=== PATIENT | female | born 1990 | race Caucasian/White ===

== ENCOUNTER 2019-02-18 11:53 | Inpatient (IN) ==
[2019-02-18] MEDS ORDERED: *HR* Nalbuphine 10 MG/ML AMPUL IVP PRN (12:37)
[2019-02-18] MEDS ORDERED: Famotidine 20 MG/2 ML VIAL IVP PRN (12:37)
[2019-02-18] MEDS ORDERED: Lidocaine 1% 20 ML MDV INFILT PRN (12:37)
[2019-02-18] MEDS ORDERED: Naloxone 0.4 MG/ML INJ IVP PRN (12:37)
[2019-02-18] MEDS ORDERED: Ondansetron 4 MG/2 ML VIAL IVP PRN (12:37)
[2019-02-18] MEDS ORDERED: Metoclopramide 10 MG/2 ML VIAL IVP PRN (12:37)
[2019-02-18] MEDS ORDERED: Oxytocin 20 units/ LR 1000 mL 20 UNIT/1,000 ML BAG IVC SCH ×2 (12:45→22:17)
[2019-02-18] MEDS ORDERED: Ringers Solution, Lactated 1,000 ML IVC SCH (12:45)
[2019-02-18 13:20] LABS: Hematocrit 37.4 % (35.3-44.9); Hemoglobin 12.6 g/dL (11.5-15.4); Mean Corpuscular HGB Conc 33.7 g/dL (31.6-35.5); Mean Corpuscular Hemoglobin 30.4 pg (28.0-33.3); Mean Corpuscular Volume 90.3 fL (83.0-100.0); Red Blood Count 4.14 M/mcL (3.82-4.97)
[2019-02-18 13:21] LABS: Basophils % 0.2 %; Eosinophils % 0.2 %; Immature Granulocytes % 0.3 % (0-4); Lymphocytes # 2.2 K/mcL (0.6-4.6); Mean Platelet Volume 11.3 fL (9.4-12.4); Monocytes # 0.6 K/mcL (0.0-1.3); Monocytes % 6.1 %; Neutrophils # 6.1 K/mcL (1.6-8.9); Platelet Count 202 K/mcL (140-400); Red Cell Distribution Width 13.2 % (11.5-14.5); Segmented Neutrophils % 68.2 %
--- NOTE | 2019-02-18 13:35 | OB/GYN History & Physical ---
Date of Encounter: 02/18/19 Time of Encounter: 13:35 Assessment and Plan (1) 39 weeks gestation of Current visit: Yes Status: Acute Pitocin induction as ordered. AROM with internals placed due to the difficulty in monitoring the baby with external monitors (2) Maternal obesity syndrome in third trimester Current visit: Yes Status: Acute History of Present Illness Chief complaint: induction of labor at term HPI: Ms. Mariano is a 28 year old female G 3 P 2-0-0-2 at 39 4/7 weeks admitted for induction of labor at term. She denies any regular contractions, vaginal bleeding, or leaking of fluid. She reports good movement. Her has been complicated by maternal obesity Past Med Surg Social Fam HX - Past Medical History Source: patient Medical history: no medical history Psychiatric history: no psych history - Past Surgical History Surgical History: no surgical history - Social History Smoking Status: Former smoker Smokeless Tobacco Status: No Alcohol use: none Drug use: none - Family History Mother Living Status: Still Living Hx Family Cardiac Disorders: Yes Hx Family Endocrine Disorder: Yes (DM) Hx Family Neuromuscular Disorders: Yes (CRPS) Hx Family Neurologic Disorders: Yes (epilepsy) Hx Family Medical Disorders: Yes (multiple blood clots) Obstetrical History - Pregnancies : 3 Para: 2 Term: 2 : 0 Ab's: 0 Livin Medications and Allergies Famotidine [Pepcid] 40 mg PO BID 02/18/19 [History] Cmb#95/Iron/FA/Dha [ + Dha Combo Pack] 1 each PO DAILY 02/18/19 [History] Allergy/AdvReac Type Severity Reaction Status Date / Time No Known Allergies Allergy Verified 07/26/15 12:15 Review of System OB All systems PM: reviewed and no additional remarkable complaints except as stated - Constitutional Constitutional ROS IM: no chills, no fatigue, no headache(s), no weight loss - Cardiovascular Cardiovascular: no chest pain - Respiratory Respiratory: no cough, no dyspnea, no dyspnea on exertion - Gastrointestinal Gastrointestinal: no nausea, no vomiting - Menstruation Menstruation: amenorrhea Exam - Constitutional Constitutional: well developed, well nourished, no acute distress, morbidly obese - HEENT HEENT: EOMI - Lungs Respiratory exam: CTAB - Cardiovascular Cardiovascular exam: RRR - Abdomen Abdomen: Present: bowel sounds normal, gravid, non tender - Vulva Vulva: bilateral: normal - Cervix Dilation: 5 Effacement: 75 Station: -3 - Anus/Rectum Anus/Rectum: Present: normal perianal skin - Comments Comments: FHTs 125, reactive Category 1 FHR tracing AROM with moderate amount of clear fluid. IUPC and FSE placed without difficulty. Results Result Diagrams: 02/18/19 12:57 - VTE Reasons for not Prescribing Prophylaxis: Treatment not Indicated - Low risk for VTE
--- NOTE | 2019-02-18 13:42 | Anesthesia Evaluation PreOp ---
Date of Encounter: 02/18/19 Time of Encounter: 13:40 - Past History Planned Operation: mode Cardiac History: Denies any Significant Hx Pulmonary History: Denies Any Significant HX IMMIGRATION PATROL INSPECTOR History: Denies Any Significant HX Other Medical History: GERD, Other (MO) Anesthesia History: No Prior Anesthetic Complications, Past Anesthesia (mode 2) : Yes Test: Positive Alcohol Use: none Drug use: none Medications and Allergies Famotidine [Pepcid] 40 mg PO BID 02/18/19 [History] Cmb#95/Iron/FA/Dha [ + Dha Combo Pack] 1 each PO DAILY 02/18/19 [History] Allergy/AdvReac Type Severity Reaction Status Date / Time No Known Allergies Allergy Verified 07/26/15 12:15 - Meds/Allergy Pre-op Review Medications Reviewed: Yes Allergies Reviewed: Yes Beta Blockers on Current Med List: No Anesthesia Results - Labs 02/18/19 12:57 Anesthesia Exam 113/75 99 16 fht 134 Height: 6'4" Weight: 178 NPO (# of Hours): 2 Pain Scale: 1 Pain Scale Used: Numeric (1 - 10) - HEENT Pupil (Motor): Pupils equal Mallampati: II Teeth: Normal Oral Opening: Greater than 3 - IMMIGRATION PATROL INSPECTOR LOC: Oriented IMMIGRATION PATROL INSPECTOR Motor: Normal RUE, Normal LUE, Normal RLE, Normal LLE, Normal Face IMMIGRATION PATROL INSPECTOR Sensory: Normal: RUE, LUE, RLE, LLE, Face - Cardiac Rhythm: Regular Murmur: None - Pulmonary Breath Sounds: bilateral Clear Respiratory Effort: Symmetrical Anesthesia Assess/Plan ASA Score: 3 (MO) Level of consciousness: Cooperative, Oriented, Tranquil Anesthetic Plan: Epidural (risks discussed, questons answered, consented) Autologous Blood: Yes Monitoring Plan: Standard Monitors Recovery Plan: Other
[2019-02-18] MEDS ORDERED: *HR* FentaNYL (PF) 100 MCG/2 ML VIAL EP ONE (13:44)
[2019-02-18] MEDS ORDERED: Ropivacaine/PF 0.2% 20 ML VIAL EP ONE (13:44)
[2019-02-18] MEDS ORDERED: Epidural Premix (fent/bupiv) 110 ML EP SCH (13:45)
[2019-02-18] MEDS ORDERED: Ropivacaine/PF 0.2% 20 ML VIAL ONE (13:46)
[2019-02-18] MEDS ORDERED: *HR* FentaNYL (PF) 100 MCG/2 ML VIAL ONE (13:46)
[2019-02-18 14:06] LABS: Amphetamine Screen,Urine Negative ng/mL (Cutoff=1000); Barbiturate Screen,Urine Negative ng/mL (Cutoff=200); Benzodiazepines Screen,Urine Negative ng/mL (Cutoff=200); Cannabinoid Screen,Urine Negative ng/mL (Cutoff = 50); Cocaine Screen,Urine Negative ng/mL (Cutoff= 300); Opiate Screen,Urine Negative ng/mL (Cutoff=300); Phencyclidine Screen,Urine Negative ng/mL (Cutoff=25)
--- NOTE | 2019-02-18 14:26 | Anesthesia Procedures ---
Date of Encounter: 02/18/19 Time of Encounter: 14:24 Procedures: Anesthesia - Epidural/Spinal Patient ID/Chart reviewed: Yes Patient examined: Yes OB Eval: Gestational age: 39 OB Eval: : 4 OB Eval: Hx Para: 3 OB Eval: Dilated at (cm): 5 OB Eval: Contractions: Non-stressed pattern Consent Obtained: Yes Supplemental Oxygen: None/Room Air Site Prep: Aseptic Technique, Sterile prep and drape, 0.5% Chlorhexidine/Alcohol Patient position: upright Local Anesthetic: Lidocaine 1% Amount of Local Anesthetic used: 5 Touhy Needle Gauge: 18 Touhy Needle Depth (cm): 9 Catheter Depth at Skin (cm): 20 Test Dose (1.5% Lido + Epi): Volume given (mls): 3 Test Dose Result: Negative Loading Dose: Fentanyl (mcg): 100 Loading Dose: Other: Ropivacaine 5cc Loading Dose Administered: Thru Touhy Needle Infusion Med: 0.125% Bupivacaine w/ 2 mcg/ml Fentanyl Infusion Rate (mls/hr): 15 (pcea 5cc q30") Catheter Secured in Place: Tegaderm Interspace Used: L2-L3 Loss of Resistance (KISHAN): Yes Blood: No CSF: No Paresthesia: No Procedure: aseptic, abhinav well , VSS, effective Vitals + FHT's: 110/78 88 16 fht 144
--- NOTE | 2019-02-18 19:31 | OB/GYN Procedure Note ---
Delivery - Delivery Date: 02/18/19 Provider: Taty Ricks Intrapartum events: none Delivery induction: AROM, oxytocin Delivery monitor: external FHT, external uterine, internal FHT, internal uterine Anesthesia: epidural Quantitated Blood Loss: 300 - (s) Infant A Delivery Date: 02/18/19 Delivery Time: 19:11 Presentation: vertex Position: AZIZA Route of delivery: Gender: Female Viability: Viable Pounds: 9 Ounces: 12 Weight Gram: 4.41 kg at 1 minute: 9 at 5 mins: 9 Shoulder Dystocia: encountered Shoulder Dystocia Maneuvers: Juan Jose maneuver Specimens collected: cord blood Placenta: spontaneous Cord: 3 umbilical vessels - Repair Episiotomy: none Laceration Description: Perineal - 2nd Degree - Complications Delivery complications: none Delivery comments: Called to room with patient complete and +1 station. Under maternal effort she delivered a viable female weighing 9 lbs. 12 oz. and Apgars 9 and 9 at one and 5 minutes respectively over second-degree perineal laceration. Following delivery of the head there was no nuchal cord encountered. The shoulder dystocia was encountered that was resolved with Juan Jose maneuver and maternal effort (elapsed time of 40 seconds from delivery of the head to delivery of the shoulder). The infant was placed on mom's abdomen and cord was allowed to cease pulsations. The cord was then double clamped and cut with assistance from the father. Cord blood was collected. A second-degree perineal laceration was repaired using 3-0 Vicryl in standard fashion. Placenta delivered spontaneously, complete, and intact with a three-vessel cord. Mother and infant are recovering in the LDR in stable condition. - Disposition Mom disposition: stable in LDR Tillman disposition: stable in LDR
[2019-02-18] MEDS ORDERED: Famotidine 20 MG TABLET PO SCH (22:17)
[2019-02-18] MEDS ORDERED: Rho Immune Globulin 1,500 UNIT SYRINGE IM PRN (22:17)
[2019-02-18] MEDS ORDERED: Measles/Mumps/Rubella Vacc 0.5 ML VIAL SQ PRN (22:17)
[2019-02-18] MEDS ORDERED: Acetaminophen 325 MG TABLET PO PRN (22:17)
[2019-02-19] MEDS: Ibuprofen 600 MG TABLET PO PRN ×2 (08:43→14:47)
[2019-02-19] MEDS ORDERED: Prenatal Vit/FA 1 EACH TABLET PO SCH (09:00)
--- NOTE | 2019-02-19 09:07 | Discharge Summary ---
Date of Encounter: 02/19/19 Time of Encounter: 09:05 - Discharge Diagnosis (1) Vaginal delivery Priority: Primary Status: Acute Comments: Feeling well Tolerating regular diet Pain well-controlled with by mouth pain meds Ambulating independently Voiding independently Lochia light Passing flatus, no BM yet Vital signs stable Discharge home today - Discharge Medications Prescriptions: New Acetaminophen [Tylenol] 650 mg PO Q6HR PRN tablet PRN Reason: Mild Pain Ibuprofen [Motrin] 600 mg PO Q6HR PRN #30 tablet PRN Reason: Cramping Docusate [Colace] 100 mg PO BID #30 capsule Continued Cmb#95/Iron/FA/Dha [ + Dha Combo Pack] 1 each PO DAILY Famotidine [Pepcid] 40 mg PO BID Home Medications: Famotidine [Pepcid] 40 mg PO BID 02/18/19 [History] Cmb#95/Iron/FA/Dha [ + Dha Combo Pack] 1 each PO DAILY 02/18/19 [History] Acetaminophen [Tylenol] 650 mg PO Q6HR PRN tablet 02/19/19 [Rx] Docusate [Colace] 100 mg PO BID #30 capsule 02/19/19 [Rx] Ibuprofen [Motrin] 600 mg PO Q6HR PRN #30 tablet 02/19/19 [Rx] Allergies/Adverse Reactions: Allergy/AdvReac Type Severity Reaction Status Date / Time No Known Allergies Allergy Verified 07/26/15 12:15 Data Procedures and tests throughout hospitalization: Laboratory Tests 02/18/19 02/18/19 12:57 12:57 WBC 9.0 RBC 4.14 Hgb 12.6 Hct 37.4 MCV 90.3 MCH 30.4 MCHC 33.7 RDW 13.2 Plt Count 202 MPV 11.3 Immature Gran % 0.3 Seg Neutrophils % 68.2 Lymphocytes % 25.0 Monocytes % 6.1 Eosinophils % 0.2 Basophils % 0.2 Neutrophils # 6.1 Lymphocytes # 2.2 Monocytes # 0.6 Eosinophils # 0.0 Basophils # 0.0 Urine Opiates Screen Negative Ur Buprenorphine Scrn Negative Ur Barbiturates Screen Negative Ur Phencyclidine Scrn Negative Ur Amphetamines Screen Negative U Benzodiazepines Scrn Negative Urine Cocaine Screen Negative U Marijuana (THC) Screen Negative Ur Drug Screen Interp See Below Labs on day of discharge: Labs from last 24 hours 10/09/19 10/09/19 12:57 12:57 WBC 9.0 RBC 4.14 Hgb 12.6 Hct 37.4 MCV 90.3 MCH 30.4 MCHC 33.7 RDW 13.2 Plt Count 202 MPV 11.3 Immature Gran % 0.3 Seg Neutrophils % 68.2 Lymphocytes % 25.0 Monocytes % 6.1 Eosinophils % 0.2 Basophils % 0.2 Neutrophils # 6.1 Lymphocytes # 2.2 Monocytes # 0.6 Eosinophils # 0.0 Basophils # 0.0 Urine Opiates Screen Negative Ur Buprenorphine Scrn Negative Ur Barbiturates Screen Negative Ur Phencyclidine Scrn Negative Ur Amphetamines Screen Negative U Benzodiazepines Scrn Negative Urine Cocaine Screen Negative U Marijuana (THC) Screen Negative Ur Drug Screen Interp See Below Date of admission: 02/18/19 11:53 Primary care physician: Jerod Fermin DO Discharging clinician: Krista Rangel Anticipated date of discharge: 02/19/19 - Patient Status Disposition: Home, Self-Care Condition: Good Functional capacity at discharge: independent ambulation Overall status at discharge: patient is progressing back to baseline - Discharge Instructions Follow Up With: Jerod Fermin DO [Primary Care Provider] - Taty Ricks DO [Partnered Physician] - - Diet and Activity Activity: increase activity as tolerated Diet: regular diet Hospital Course Reason for admission: induction of labor, IUP at term Delivery: Episiotomy: none Laceration: 2nd degree Other procedures: none complications: none Discharge diagnosis: IUP at term delivered baby: female Time Attestation: Total time spent providing and/or coordinating discharge services: Time Spent: Less than 30 minutes Exam - Constitutional Vitals: Temp Pulse Resp BP Pulse Ox 98.1 F 69 16 114/64 98 02/19/19 07:30 02/19/19 07:30 02/19/19 07:30 02/19/19 07:30 02/19/19 00:00 General appearance IM: A&O X 3, morbidly obese - Respiratory Respiratory exam: Present: CTAB - Cardiovascular Cardiovascular exam IM: Present: RRR - GI/Abdominal GI/Abdominal exam IM: normal bowel sounds - Rectal Rectal exam: deferred - Uterine Tone: Firm Uterus Position: 2 Fingers Below Umbilicus, Midline - Extremities Exam Extremities exam IM: Present: full ROM - Neurological Exam Neurological exam: alert, oriented X3 - Psychiatric Additional comments: Signs and symptoms of depression discussed with patient and she verbalizes understanding of when to seek help
[2019-02-19 15:22] VITALS: BP 108/68
== END 2019-02-19 20:22 | disposition home or self-care (01) | DRG 560 ==
LOC: 1NENULAB 11:53 → 1NENUOBS 21:46
PROVIDERS: ADMIT Registered Nurse; ATTEND Registered Nurse